=== PATIENT | female | born 1990 | race Caucasian/White ===

== ENCOUNTER 2016-06-15 | Outpatient (CLI) | payer MEDICAID | END 2016-06-15 23:59 | disposition critical access hospital (66) | DX: T43.212A Poisoning by selective serotonin and norepinephrine reuptake inhibitors, intentional self-harm, initial encounter (principal) | CPT/HCPCS: A0425; A0427 ==

== ENCOUNTER 2016-06-16 00:24 | Emergency (ER) | payer MEDICAID ==
[2016-06-16] MEDS ORDERED: DEXAMETHASONE 10 MG/ML VIAL IVP STA (04:34)
[2016-06-16] MEDS ORDERED: cefTRIAXone 1 GM in SODIUM CHLORIDE 0.9% MINIBAG 100 ML IV STA (04:34)
[2016-06-16] MEDS ORDERED: SODIUM CHLORIDE 0.9% 1,000 ML IV ONE ×3 (04:34→09:25)
[2016-06-16] MEDS ORDERED: DEXAMETHASONE 10 MG/ML VIAL ONE (04:39)
[2016-06-16] MEDS ORDERED: cefTRIAXone 1 GM VIAL ONE (04:39)
== END 2016-06-16 14:45 | disposition home or self-care (01) ==
DX: F15.10 Other stimulant abuse, uncomplicated (principal); F32.9 Major depressive disorder, single episode, unspecified; T43.211A Poisoning by selective serotonin and norepinephrine reuptake inhibitors, accidental (unintentional), initial encounter; Y92.89 Other specified places as the place of occurrence of the external cause; H66.003 Acute suppurative otitis media without spontaneous rupture of ear drum, bilateral; F17.200 Nicotine dependence, unspecified, uncomplicated; Z59.0 Homelessness

== ENCOUNTER 2017-07-22 12:51 | Outpatient (CLI) | payer MEDICAID ==
--- NOTE | 2017-07-26 09:41 | Ultrasound Report ---
OB ULTRASOUND: 07/22/2017 CLINICAL INDICATION: anatomy. TECHNIQUE: Real-time scanning was performed with front desk representative static images obtained. LAST MENSTRUAL PERIOD: 03/01/2017 Clinical Age: 20 weeks 3 days US Age: 20 weeks 6 days EFW Hadlock: 400 grams EFW% Hadlock: 80% Heart Rate: 154 bpm EDC: 12/06/2017 US EDC: 12/03/2017 BPD Hadlock: 20 weeks 4 days; Mean mm 48 HC Hadlock: 20 weeks 1 day; Mean mm 176 AC Hadlock: 21 weeks 4 days; Mean mm 166 FL Hadlock: 20 weeks 6 days; Mean mm 34 Presentation: variable Placental Location: anterior Cervical Length: 4.1 cm Amniotic Fluid: subjectively normal; MVP 5.2 cm FINDINGS There is a single viable intrauterine gestation, in variable presentation. heart rate is 154 BPM. The placenta is anterior, without evidence of previa. Amniotic fluid volume is subjectively normal, with a deepest pocket of 5.2 cm. By size, the fetus measures 20 weeks 6 days (20 weeks 3 days by LMP). The following anatomic structures were visualized and appear normal: The intracranial contents, including the ventricles and posterior fossa; the lips and orbits; the spine; the heart, including 4 chamber view and outflow tracts, and diaphragm; the abdominal contents, including the stomach, the bilateral kidneys, and urinary bladder, as well as a normal 3 vessel cord insertion; 4 limbs. No free fluid or adnexal lesion is appreciated. IMPRESSION: SINGLE VIABLE INTRAUTERINE GESTATION, WITH SIZE IN KEEPING WITH LMP DATING. NORMAL ANATOMIC SURVEY. TD: 07/22/2017 17:10 MTDD
== END 2017-07-22 12:52 | disposition home or self-care (01) ==
LOC: DI 12:51
PROVIDERS: ATTEND Midwife
DX: Z36.9 Encounter for antenatal screening, unspecified (principal)
CPT/HCPCS: 76811

== ENCOUNTER 2017-07-27 12:11 | Outpatient (CLI) | payer MEDICAID ==
[2017-07-27 13:12] VITALS: BP 133/88
[2017-07-27 13:14] LABS: BILIRUBIN,URINE NEGATIVE (NEGATIVE); CLARITY,URINE SL. CLOUDY (CLEAR); GLUCOSE, URINE (UA) NEGATIVE (NEGATIVE); KETONES,URINE (UA) NEGATIVE (NEGATIVE); LEUKOCYTE ESTERASE, URINE LARGE (NEGATIVE); NITRITE,URINE NEGATIVE (NEGATIVE); OCCULT BLOOD,URINE MODERATE (NEGATIVE); PH,URINE 6.5 PH (5.0-7.5); PROTEIN,URINE TRACE mg/dL (NEGATIVE); UROBILINOGEN,URINE 0.2 (NORMAL) E.U./dL (NORMAL)
[2017-07-27 13:21] LABS: BACTERIA,URINE Moderate /HPF (None Seen); SQUAMOUS EPITHELIAL CELL,UR RARE Squamous (<= Few)
== END 2017-07-27 14:10 | disposition home or self-care (01) ==
LOC: WFO 12:11 → FBP 12:13 → WFO 14:10
PROVIDERS: ATTEND Obstetrics & Gynecology
DX: O23.42 Unspecified infection of urinary tract in pregnancy, second trimester (principal); Z3A.21 21 weeks gestation of pregnancy
CPT/HCPCS: 81001; 87086; 99213

== ENCOUNTER 2023-10-29 17:23 | Outpatient (CLI) | payer MEDICAID | END 2023-10-29 23:59 | disposition critical access hospital (66) | LOC: EMS 17:23 | DX: M54.50 Low back pain, unspecified (principal) | CPT/HCPCS: A0425; A0429; A0999 ==

== ENCOUNTER 2023-10-29 17:42 | Emergency (ER) | payer MEDICAID ==
--- NOTE | 2023-10-29 18:09 | ED Physician Documentation ---
PD HPI BACK PAIN - Stated complaint Stated Complaint: BACK PX - Chief complaint Chief Complaint: Back Pain - Additional information Additional information: 32-year-old female presents the emergency department via EMS from [facility] for concerns of back pain. Patient was given p.o. Toradol from facility with little to no relief. She was seen here for back pain and given antibiotics for urinary tract infection she is last use fentanyl and meth a couple days ago. She denies any dysuria any fevers or chills she says that she has that she is having a hard time getting her lower back pain under control. No fevers or chills no incontinence of stool or urineDenies any history of back surgeries or IV drug use PD PAST MEDICAL HISTORY - Past Medical History Past Medical History: Yes Cardiovascular: [place] Neuro: Seizure disorder Psych: ADD/ADHD - Past Surgical History Past Surgical History: Yes HEENT: Tonsil/Adenoidectomy - Present Medications Home Medications: Ambulatory Orders Medication Instructions Recorded Confirmed Sulfamethoxazole/Trimethoprim 1 each PO BID #14 tablet 12/28/15 [Sulfamethoxazole-Tmp Ds Tablet] levoFLOXacin [Levaquin] 500 mg PO DAILY #7 tablet 12/28/15 Azithromycin [Zithromax] 250 mg PO DAILY #6 tablet 06/16/16 Cyclobenzaprine [Flexeril] 10 mg PO TID PRN 6 Days #20 tablet 10/29/23 - Allergies Allergies/Adverse Reactions: Allergies Allergy/AdvReac Type Severity Reaction Status Date / Time Penicillins Allergy Unknown Verified 10/29/23 17:57 trazodone Allergy Unknown Verified 10/29/23 17:57 venlafaxine [From Effexor] Allergy Unknown Verified 10/29/23 17:57 - Social History Does the pt smoke?: Yes Smoking Status: Current every day smoker Does the pt drink ETOH?: Yes Does the pt have substance abuse?: Yes Substance Use and Type: Meth, Other - Immunizations Immunizations are current?: Yes - POLST Patient has POLST: No PD ED PE NORMAL - Vitals Vital signs reviewed: Yes - General General: Alert and oriented X 3, No acute distress, Well developed/nourished - HEENT HEENT: Atraumatic - Neck Neck: Supple, no meningeal sign - Abdomen Abdomen: Normal bowel sounds, Soft, Non tender, Non distended, No organomegaly - Derm Derm: Normal color, Warm and dry, No rash - Extremities Extremities: No edema - Neuro Neuro: Alert and oriented X 3, 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 Curvature of the cervical, thoracic, and lumbar spine are within normal limits. Bony features of the shoulders and hips are of equal height bilaterally. Posture is upright, gait is smooth, steady, and within normal limits. No tenderness noted on palpation of the spinous processes. Spinous processes are midline. Cervical, thoracic, and lumbar paraspinal muscles are not tender and are without spasm. No discomfort is noted with flexion, extension, and [id number] rotation of the cervical spine, full range of motion is noted. Full range of motion including flexion, extension, and [id number] rotation of the thoracic and lumbar spine are noted and without discomfort. Straight leg raise test is negative bilaterally. Sensation to the upper and lower extremities is normal bilaterally. No clonus is noted. 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 Dorsi/plantar flexion is normal bilaterally. Results - Vitals Vitals: Vital Signs - 24 hr 10/29/23 10/29/23 10/29/23 17:50 19:54 21:04 Temperature 36.5 C 36.2 C L 36.2 C L Heart Rate 79 81 74 Respiratory 18 16 14 Rate Blood Pressure 141/104 H 155/104 H 148/98 H O2 Saturation 98 97 100 Oxygen O2 Source Room air - Labs Labs: Laboratory Tests 10/29/23 10/29/23 10/29/23 18:37 18:37 18:48 WBC 9.8 RBC 4.39 Hgb 12.5 Hct 38.2 MCV 87.0 MCH 28.5 MCHC 32.7 RDW 12.1 Plt Count 410 MPV 8.2 Neut # (Auto) 6.6 Lymph # (Auto) 2.6 [place]ruff # (Auto) 0.6 Eos # (Auto) 0.0 Baso # (Auto) 0.0 Absolute Nucleated RBC 0.00 Nucleated RBC % 0.0 Sodium 135 Potassium 4.0 Chloride 101 Carbon Dioxide 31 Anion Gap 3.0 L BUN 14 Creatinine 0.6 Estimated GFR (MDRD) 116 Glucose 118 H Calcium 8.8 Magnesium 2.0 Total Bilirubin 0.2 AST 12 ALT 11 Alkaline Phosphatase 53 Total Protein 6.4 Albumin 3.6 Globulin 2.8 Albumin/Globulin Ratio 1.3 Lipase 21 Urine Color Urine Clarity Urine pH Ur Specific [place] Urine Protein Urine Glucose (UA) Urine Ketones Urine Occult Blood Urine Nitrite Urine Bilirubin Urine Urobilinogen Ur Leukocyte Esterase Ur Microscopic Review Urine Culture Comments Urine HCG, Qual NEGATIVE 10/29/23 18:48 WBC RBC Hgb Hct MCV MCH MCHC RDW Plt Count MPV Neut # (Auto) Lymph # (Auto) [place] # (Auto) Eos # (Auto) Baso # (Auto) Absolute Nucleated RBC Nucleated RBC % Sodium Potassium Chloride Carbon Dioxide Anion Gap BUN Creatinine Estimated GFR (MDRD) Glucose Calcium Magnesium Total Bilirubin AST ALT Alkaline Phosphatase Total Protein Albumin Globulin Albumin/Globulin Ratio Lipase Urine Color YELLOW Urine Clarity CLEAR Urine pH 7.0 Ur Specific [place] 1.015 Urine Protein NEGATIVE Urine Glucose (UA) NEGATIVE Urine Ketones NEGATIVE Urine Occult Blood TRACE-INTA Urine Nitrite NEGATIVE Urine Bilirubin NEGATIVE Urine Urobilinogen 0.2 (NORMAL) Ur Leukocyte Esterase NEGATIVE Ur Microscopic Review NOT INDICATED Urine Culture Comments NOT INDICATED Urine HCG, Qual PD Medical Decision Making - ED course ED course: 32-year-old female presents emergency department for worsening back pain. She has no abnormal labs no leukocytosis no electrolyte abnormalities normal urinalysis. She is given cyclobenzaprine here in the emergency department she stated that this medication made her back pain worse which is unlikely. Patient does seems she is going to intramuscular shots of droperidol to help with her back pain. There is no further interventions that are warranted At this point in time she has no urinary or bowel incontinence no fevers or chills. She is able to ambulate without difficulty normal back exam given that she has not had any trauma to the lower back I do not believe any imaging is warranted. At this point time I believe the patient is safe for discharge she is more than welcome to continue taking muscle relaxers as needed for her muscle pain if she would like. Prescription sent to her preferred pharmacy. Departure - Departure Disposition: 01 Home, Self Care Clinical Impression: Back pain Instructions: ED Low Back Pain Injury Prescriptions: Cyclobenzaprine [Flexeril] 10 mg PO TID PRN 6 Days #20 tablet PRN Reason: Spasms Comments: Thank you for trusting us with your care. Given that you have not had any trauma or injury to your lower back I do not believe any imaging is warranted at this point in time. Your labs are very normal as well as your urinalysis there is no further workup indicated at this point in time. If you start to develop any fevers or chills, urinary incontinence or bowel incontinence please come back to the emergency department. I have sent a prescription of muscle relaxers to [facility] if you would like to have [facility] pick these up to help with your back pain you are more than welcome to take these. You can take 1000 mg of Tylenol every 8 hours for back pain and 500 mg of naproxen every 12 hours musculoskeletal pain. Consider applying ice 20 minutes at a time 1 hour off and make sure that you are continuing to move around to help with expediting your recovery. Discharge Date/Time: 10/29/23 21:05
[2023-10-29] MEDS: CYCLOBENZAPRINE 10 MG TABLET PO STA (18:41)
[2023-10-29 18:53] LABS: BASOPHILS % (AUTO) 0.2 %; EOSINOPHILS % (AUTO) 0.1 %; HCT - HEMATOCRIT 38.2 % (37.0-47.0); HGB - HEMOGLOBIN 12.5 g/dL (12.0-16.0); LYMPHOCYTES # (AUTO) 2.6 10^3/uL (1.5-3.5); LYMPHOCYTES % (AUTO) 26.7 %; MEAN CORPUSCULAR HEMOGLOBIN 28.5 pg (27.0-31.0); MEAN CORPUSCULAR HGB CONC 32.7 g/dL (32.0-36.0); MEAN PLATELET VOLUME 8.2 fL (7.9-10.8); MONOCYTES # (AUTO) 0.6 10^3/uL (0.0-1.0); NEUTROPHILS # (AUTO) 6.6 10^3/uL (1.5-6.6); NEUTROPHILS % (AUTO) 66.7 %; PLT - PLATELET COUNT 410 10^3/uL (130-450); RED BLOOD COUNT 4.39 10^6/uL (4.20-5.40); RED CELL DISTRIBUTION WIDTH 12.1 % (12.0-15.0); WHITE BLOOD COUNT 9.8 x10^3/uL (4.8-10.8)
[2023-10-29 18:57] LABS: BILIRUBIN,URINE NEGATIVE (NEGATIVE); GLUCOSE, URINE (UA) NEGATIVE (NEGATIVE); KETONES,URINE (UA) NEGATIVE (NEGATIVE); LEUKOCYTE ESTERASE, URINE NEGATIVE (NEGATIVE); NITRITE,URINE NEGATIVE (NEGATIVE); OCCULT BLOOD,URINE TRACE-INTA (NEGATIVE); PROTEIN,URINE NEGATIVE (NEGATIVE); UROBILINOGEN,URINE 0.2 (NORMAL) E.U./dL (NORMAL)
[2023-10-29 18:59] LABS: CLARITY,URINE CLEAR (CLEAR)
[2023-10-29 19:00] LABS: HCG UR QUAL NEGATIVE
[2023-10-29 19:07] LABS: ALBUMIN 3.6 g/dL (3.2-5.5); ALBUMIN/GLOBULIN RATIO 1.3 (1.0-2.2); BILIRUBIN,TOTAL 0.2 mg/dL (0.2-1.0); CALCIUM 8.8 mg/dL (8.5-10.3); CREATININE 0.6 mg/dL (0.6-1.3); TOTAL PROTEIN 6.4 g/dL (6.4-8.9)
[2023-10-29] MEDS: DROPERIDOL 5 MG/2 ML VIAL IM STA ×2 (19:13→19:51)
[2023-10-29 21:08] VITALS: BP 148/98; O2SAT 100
== END 2023-10-29 21:05 | disposition home or self-care (01) ==
LOC: EDUNIT# → ED 17:42
DX: M54.50 Low back pain, unspecified (principal); F17.200 Nicotine dependence, unspecified, uncomplicated
CPT/HCPCS: 36415; 80053; 81003; 81025; 83690; 83735; 85025; 96372; 99284; A9270; 81001; 87086